=== PATIENT | male | born 1965 | race Hispanic/Latino ===

== ENCOUNTER 2024-03-26 14:22 | Emergency (ER) | payer BC ==
[~2024-03-26] VITALS: Ht 167.6 cm; Wt 77.6 kg
[2024-03-26 14:55] VITALS: PULSE 105; RESP 18; TEMP 98.1; O2SAT 96
== END 2024-03-26 15:30 | disposition home or self-care (01) ==
LOC: FSED 14:45
DX: R05.9 Cough, unspecified (principal); J06.9 Acute upper respiratory infection, unspecified; J45.909 Unspecified asthma, uncomplicated; B20 Human immunodeficiency virus [HIV] disease; Z11.52 Encounter for screening for COVID-19
CPT/HCPCS: 0223U; 87400; 99282